=== PATIENT | female | born 1995 | race Caucasian/White ===

== ENCOUNTER 2019-01-23 16:56 | Emergency (ER) | payer BC, OTHER ==
[2019-01-23 17:31] LABS: URINE BLOOD (Dip) POC 1+ (NEGATIVE); URINE GLUCOSE (Dip) POC Negative (NEGATIVE); URINE KETONES (Dip) POC 2+ (NEGATIVE); URINE LEUKOCYTE EST (Dip) POC Negative (NEGATIVE); URINE NITRITE (Dip) POC Negative (NEGATIVE); URINE TOTAL PROTEIN POC 2+ (NEGATIVE)
[2019-01-23] MEDS: SOD CHLORIDE 0.9% 1,000 ML IV (17:35)
[2019-01-23 17:38] LABS: ADD MAN DIFF? NO
[2019-01-23 17:40] LABS: BASOPHILS % 0.3 % (0.0-2.0); EOSINOPHILS % 0.6 % (0.0-7.0); HEMATOCRIT 42.6 % (37.0-47.0); HEMOGLOBIN 13.9 g/dl (12.0-16.0); LYMPHOCYTES # 1.6 10^3/ul (0.8-2.9); LYMPHOCYTES % 24.7 % (15.0-51.0); MEAN CORPUSCULAR HEMOGLOBIN 28.1 pg (29.0-33.0); MEAN CORPUSCULAR HGB CONC 32.6 g/dl (32.0-37.0); MEAN CORPUSCULAR VOLUME 86.1 fl (82.0-101.0); MONOCYTE # 0.7 10^3/ul (0.3-0.9); MONOCYTES % 11.2 % (0.0-11.0); NEUTROPHIL # 4.1 10^3/ul (1.6-7.5); NEUTROPHILS % 62.9 % (39.0-77.0); PLATELET COUNT 227 10^3/UL (140-415); RED BLOOD COUNT 4.95 10^6/ul (4.20-5.40); RED CELL DISTRIBUTION WIDTH 12.2 % (11.5-14.5)
[2019-01-23 17:40] LABS: WHITE BLOOD COUNT 6.4 10^3/ul (4.8-10.8)
[2019-01-23 18:05] LABS: ALANINE AMINOTRANSFERASE 39 IU/L (13-69); ALBUMIN 5.1 g/dl (3.3-4.9); ALBUMIN/GLOBULIN RATIO 1.18; ALKALINE PHOSPHATASE 75 IU/L (42-121); ANION GAP 12 (5-13); ASPARTATE AMINO TRANSFERASE 40 IU/L (15-46); BILIRUBIN,INDIRECT 0.7 mg/dl (0-1.1); BILIRUBIN,TOTAL 0.7 mg/dl (0.2-1.3); BLOOD UREA NITROGEN 9 mg/dl (7-20); C-REACTIVE PROTEIN 0.7 mg/dl (0.0-0.9); CALCIUM 10.1 mg/dl (8.4-10.2); CARBON DIOXIDE 25 mmol/L (21-31); CHLORIDE 103 mmol/L (97-110); CREATININE 0.79 mg/dl (0.44-1.00); Estimated GFR > 60 mL/min (>60); GLUCOSE 99 mg/dl (70-220); POTASSIUM 3.5 mmol/L (3.5-5.1); SODIUM 140 mmol/L (135-144); TOTAL PROTEIN 9.4 g/dl (6.1-8.1)
[2019-01-23 18:08] LABS: ADD UMIC YES; UR ASCORBIC ACID NEGATIVE (NEGATIVE); UR BACTERIA FEW /HPF (NONE SEEN); UR BILIRUBIN (Dip) NEGATIVE (NEGATIVE); UR BLOOD (Dip) 2+ mg/dL (NEGATIVE); UR CLARITY CLOUDY (CLEAR); UR COLOR AMBER (YELLOW); UR GLUCOSE (Dip) NEGATIVE (NEGATIVE); UR KETONES (Dip) 1+ mg/dL (NEGATIVE); UR LEUKOCYTE ESTERASE (Dip) TRACE Leu/ul (NEGATIVE); UR MUCUS MANY /HPF (NONE SEEN); UR NITRITE (Dip) NEGATIVE (NEGATIVE); UR RBC 1 /HPF (0-5); UR SQUAMOUS EPITHELIAL CELL MODERATE /HPF (FEW); UR TOTAL PROTEIN (Dip) 1+ mg/dl (NEGATIVE); UR UROBILINOGEN (Dip) NEGATIVE (NEGATIVE); UR WBC 5 /HPF (0-5)
[2019-01-23] MEDS: KETOROLAC 30 MG INJ IV (19:41)
[2019-01-23 19:57] LABS: ERYTHROCYTE SEDIMENTATION RATE 7 mm/Hr (0-20)
== END 2019-01-23 19:42 | disposition home or self-care (01) ==
LOC: FTE 16:56
DX: R20.0 Anesthesia of skin (principal); J45.909 Unspecified asthma, uncomplicated; Z87.891 Personal history of nicotine dependence
CPT/HCPCS: 36415; 70450; 72125; 80053; 81001; 81003; 81025; 85025; 85651; 86140; 96360; 99285-25

== ENCOUNTER 2019-02-19 19:58 | Emergency (ER) | payer OTHER, BC ==
[2019-02-19 20:38] LABS: URINE BLOOD (Dip) POC 3+ (NEGATIVE); URINE KETONES (Dip) POC Trace (NEGATIVE); URINE LEUKOCYTE EST (Dip) POC Trace (NEGATIVE); URINE NITRITE (Dip) POC Negative (NEGATIVE); URINE TOTAL PROTEIN POC 2+ (NEGATIVE)
[2019-02-19] MEDS: LIDOCAINE/MYLANTA 40 ML BTL PO (21:04)
[2019-02-19] MEDS: FAMOTIDINE 20 MG TAB PO (21:04)
[2019-02-26 18:55] LABS: URINE BLOOD (Dip) POC 3+ (NEGATIVE); URINE KETONES (Dip) POC Trace (NEGATIVE); URINE LEUKOCYTE EST (Dip) POC Trace (NEGATIVE); URINE NITRITE (Dip) POC Negative (NEGATIVE); URINE TOTAL PROTEIN POC 2+ (NEGATIVE)
== END 2019-02-19 21:35 | disposition home or self-care (01) ==
LOC: FTE 19:58
DX: R10.13 Epigastric pain (principal); J45.909 Unspecified asthma, uncomplicated; F17.210 Nicotine dependence, cigarettes, uncomplicated
CPT/HCPCS: 81003; 81025; 99283